=== PATIENT | female | born 1990 | race Caucasian/White ===

== ENCOUNTER 2021-12-20 13:46 | Emergency (ER) | payer OTHER ==
[~2021-12-20] VITALS: Ht 152.4 cm; Wt 64.9 kg
[2021-12-20 14:05] VITALS: BP 134/93
--- NOTE | 2021-12-20 14:10 | NUR ---
PT AMB TO BED 12.
--- NOTE | 2021-12-20 14:15 | NUR ---
31 Y/O FEMALE C/O VAGINAL BLEEDING X2 DAYS + PELVIC PAIN/CRAMPING X 3 DAYS, PAIN IS CONSTANT RATED AT 5/10. STATES ON SATURDAY BLOOD NOTED WHEN WIPING ONLY AND TODAY PASSED 1 CLOT. SAW OBGYN YESTERDAY, CONFIRMED AND ADVISED TO REST. DENIES TRAUMA OR INJURY. DENIES FEVER, [place], [place]. G3, P2. NKA
--- NOTE | 2021-12-20 14:38 | NUR ---
CALI NELSON AT BEDSIDE FOR EVALUATION
[2021-12-20 15:26] LABS: BASOPHILS % (AUTO) 0.5 % (0.0-2.0); EOSINOPHILS % (AUTO) 0.5 % (0.0-4.0); HEMATOCRIT 39.1 % (36-48); LYMPHOCYTES # (AUTO) 1.5 K/uL (2.5-16.5); MEAN CORPUSCULAR HEMOGLOBIN 29 pg (27-31); MEAN CORPUSCULAR HGB CONC 33 g/dL (33-37); MEAN CORPUSCULAR VOLUME 87.5 fL (80-94); MONOCYTES # (AUTO) 0.3 K/uL (0.8-1.0); MONOCYTES % (AUTO) 4.9 % (1.7-9.3); NEUTROPHILS % (AUTO) 72.1 % (42.2-75.2); PLATELET COUNT (AUTO) 220 K/uL (140-450); RED BLOOD CELL COUNT(AUTO) 4.47 MIL/uL (4.20-5.40); RED CELL DISTRIBUTION WIDTH 14.5 % (11.6-13.7); WHITE BLOOD COUNT (AUTO) 6.9 K/uL (4.8-10.8)
--- NOTE | 2021-12-20 17:10 | NUR ---
Misael rudolph in [facility] - 12/20/21 at 1729 by GEORGE TAKEN TO CT VIA W/C
[2021-12-20] MEDS ORDERED: CEPH-588 PO (17:30)
[2021-12-20 17:40] VITALS: BP 131/73
--- NOTE | 2021-12-20 17:40 | NUR ---
Patient discharged with v/s stable. Written and verbal after care instructions about UTI and threatened miscarriage given and explained. Patient alert, oriented and verbalized understanding of instructions. Ambulatory with steady gait. All questions addressed prior to discharge. ID band removed. Patient advised to follow up with PMD. Rx of Cephalexin given. Patient educated on indication of medication including possible reaction and side effects. Opportunity to ask questions provided and answered.
[2021-12-20 20:31] LABS: APPEARANCE,URINE SL CLOUDY (CLEAR); BILIRUBIN,URINE NEGATIVE (NEGATIVE); BLOOD, URINE 2+ (NEGATIVE); COLOR,URINE YELLOW (YELLOW); LEUKOCYTE ESTERASE ,URINE TRACE (NEGATIVE); NITRITE, URINE NEGATIVE (NEGATIVE); UGLUCOSE NEGATIVE (NEGATIVE)
[2021-12-20 20:48] LABS: OTHER CASTS, URINE None Seen /LPF (None Seen); WBC,URINE 0-5 /HPF (0-5)
== END 2021-12-20 17:40 | disposition home or self-care (01) ==
LOC: MED 13:46
DX: O20.0 Threatened abortion (principal); O23.41 Unspecified infection of urinary tract in pregnancy, first trimester; N39.0 Urinary tract infection, site not specified; Z3A.01 Less than 8 weeks gestation of pregnancy
CPT/HCPCS: 36415; 76817; 81001; 81025; 84702; 85025; 86900; 86901; 99284; Q0092